=== PATIENT | male | born 1965 ===

== ENCOUNTER 2025-05-03 08:52 | Day surgery (SDC) | payer OTHER ==
[2025-04-26 14:12] VITALS: BP 159/85
[~2025-05-03] VITALS: Ht 182.9 cm; Wt 94.3 kg
[2025-05-03] MEDS ORDERED: LIDOCAINE HCL 1%/EPINEPHRINE 20ML VIAL IJ ONE ×2 (10:56→11:30)
[2025-05-03] MEDS ORDERED: HEMOSTATIC MATRIX 1 KIT KIT TOP ONE ×3 (10:56→11:30)
[2025-05-03] MEDS ORDERED: DIBUCAINE 30 GM TUBE ONE (10:56)
[2025-05-03] MEDS ORDERED: METRONIDAZOLE/SODIUM CHLORIDE 500 MG/100 ML PIGGYBACK IV ONE ×2 (10:57→11:30)
[2025-05-03] MEDS ORDERED: BUPIVACAINE HCL 30 ML VIAL IJ ONE (11:30)
[2025-05-03] MEDS ORDERED: POVIDONE-IODINE 118 ML BOTT TOP ONE (11:30)
[2025-05-03] MEDS ORDERED: DIBUCAINE 30 GM TUBE RECTAL ONE (11:30)
[2025-05-03] MEDS ORDERED: levoFLOXacin IN DEXTROSE 5 % 5 MG/ML PIGGYBAG IV ONE (11:30)
[2025-05-03] MEDS ORDERED: TRAM1TAB98 PO (12:16)
[2025-05-03] MEDS ORDERED: NEURONTIN300 MG PO (12:16)
[2025-05-03] MEDS ORDERED: COLACE100 MG PO (12:16)
== END 2025-05-03 17:35 | disposition home or self-care (01) ==
LOC: CIR.AMB 08:52
PROVIDERS: ATTEND Surgery
DX: K60.321 Anal fistula, complex, initial (principal); K51.813 Other ulcerative colitis with fistula; K62.89 Other specified diseases of anus and rectum; Z88.0 Allergy status to penicillin